=== PATIENT | female | born 2000 | race Hispanic/Latino ===

== ENCOUNTER 2020-06-03 16:47 | Emergency (ER) | payer OTHER ==
[~2020-06-03] VITALS: Ht 152.4 cm; Wt 68.1 kg
--- NOTE | 2020-06-03 17:08 | REP ---
INDICATION: trauma COMPARISON: None. TECHNIQUE: AP, lateral, bilateral oblique views right hand. FINDINGS: The osseous structures and joint spaces are intact and normal. There is no evidence for acute fracture or dislocation. Surrounding soft tissues are unremarkable. No subcutaneous emphysema or radiodense foreign body. IMPRESSION: . No acute fracture or dislocation. <Electronically signed by Emile Wright > 06/03/20 [id number]
[2020-06-03 20:44] VITALS: BP 139/87
== END 2020-06-03 20:50 | disposition home or self-care (01) ==
LOC: M ED 16:47
DX: S60.112A Contusion of left thumb with damage to nail, initial encounter (principal); W23.0XXA Caught, crushed, jammed, or pinched between moving objects, initial encounter; Y92.9 Unspecified place or not applicable; Y93.9 Activity, unspecified; Y99.9 Unspecified external cause status